=== PATIENT | female | born 1970 | race Caucasian/White ===

== ENCOUNTER 2018-01-01 23:49 | Emergency (ER) | payer MEDICARE, OTHER ==
[~2018-01-01] VITALS: Ht 162.6 cm; Wt 61.7 kg
[2018-01-02 00:12] VITALS: BP 148/82
[2018-01-02] MEDS ORDERED: TRAMADOL HCL 50 MG TAB PO ONE (00:15)
== END 2018-01-02 00:36 | disposition home or self-care (01) ==
LOC: FSED 23:49
DX: J02.0 Streptococcal pharyngitis (principal)
CPT/HCPCS: 83518; 99282

== ENCOUNTER → 2018-08-25 | Outpatient (CLI) | payer MEDICARE, OTHER ==
--- NOTE | 2018-08-25 13:10 | Diagnostic Imaging Report ---
EXAM: CT Chest WITHOUT contrast 08/25/2018 9:48 AM INDICATION: Chronic cough COMPARISON: No prior CT or CT report is available on PACS for comparison. TECHNIQUE: Chest was scanned utilizing a multidetector helical scanner from the lung apex through the level of the adrenal glands without administration of IV contrast. Absence of intravenous contrast decreases sensitivity for detection of lymphadenopathy and vascular pathology. Coronal and sagittal reformations were obtained. Routine protocol was performed. Dose modulation, iterative reconstruction, and/or weight based adjustment of the mA/kV was utilized to reduce the radiation dose to as low as reasonably achievable. IV CONTRAST: None RADIATION DOSE: Total DLP: 548.32 mGy*cm Estimated effective dose: (DLP x 0.014 x size factor) mSv COMPLICATIONS: None FINDINGS: LINES/ TUBES: None. LUNGS AND AIRWAYS: In the posterior apex of the right lower lobe (series 6, image 58) there is a 7 mm cavitated nodule. In the left lower lobe there is a nonspecific 3 mm nodule (image 89). A small calcified granuloma is seen in the left upper lobe. No pulmonary consolidation. Trachea and main bronchi are clear. PLEURA: No pleural effusion, pneumothorax or pleural calcification. HEART AND MEDIASTINUM: The thyroid gland is normal. No mediastinal, hilar or axillary lymphadenopathy. The heart is normal in size.. There is no pericardial effusion. The thoracic aorta is unremarkable. No dilatation of the main pulmonary artery. Small hiatus hernia is seen. UPPER ABDOMEN: Included portions of the unenhanced liver, spleen, pancreas and adrenals unremarkable. In the upper pole of the right kidney there are several parenchymal calcifications which appear to be related to cortical scars. There is fat stranding seen adjacent to the lateral mid and lower portion of the right kidney. BONES: No acute or suspicious bony lesion. A sclerotic focus in the manubrium sternum may be a bone island. SOFT TISSUES: Superficial surrounding soft tissue unremarkable. IMPRESSION: 1. Small cavitated nodule in the right lower lobe may be inflammatory or infectious, possibly related to aspiration. However, differential considerations include opportunistic infection or neoplasm. Recommend correlation with laboratory findings and medical history. Short interval chest CT may be appropriate after treatment to assess for resolution. 2. Nonspecific 3 mm left lower lobe nodule. Six-month follow-up CT recommended to assess stability. 3. Localized fat stranding adjacent to the mid and lower portions of the right kidney may be related to renal infection. This is only partially visualized on current chest CT. Correlation with CT abdomen/pelvis recommended. Signed by: Dr. Fabio Acosta M.D. on 08/25/2018 1:06 PM
--- NOTE | 2018-08-25 17:05 | Diagnostic Imaging Report ---
Maxillofacial sinus CT without IV contrast. History: Cough. Comparison studies: None Technique: Axial images were obtained through the paranasal sinuses. Coronal and sagittal images reconstructed from the axial data. Radiation dose: Total DLP: 348 mGy*cm. Estimated effective dose: DLP x 0.015 Intravenous contrast: None Findings: Paranasal sinuses: Bilateral anterior and posterior ethmoid air cells are partially opacified and contain scattered nonspecific inflammatory mucosal thickening. There is mild focal mucosal thickening or retention cyst in the anterior right sphenoid sinus and in the left frontal sinus. Minimal mucosal thickening in the bilateral maxillary sinuses and left sphenoid sinus. Mucosal thickening along bilateral Gabriele cells result in narrowing of the bilateral maxillary ostia. The hiatus semilunaris and ethmoid infundibula are otherwise patent bilaterally. The sphenoethmoidal recesses and frontoethmoidal recesses are patent. Other: Nasal vestibule and cavity: There is nonspecific reactive hypertrophy of the inferior turbinates. No mass. Nasal septum: S-shaped septal deviation with dominant curvature to the left with associated leftward projecting osseous spur which abuts the left middle and inferior turbinates. Mild deviation of the anterior superior nasal septum to the right. Agger Nasi: Partially opacified with mucosal thickening. Turbinates: No hunter bullosa. Gabriele cells: Present bilaterally, as above. Lamina papyracea: Intact. Cribriform plates: Proximally 7 mm below the level the fovea ethmoidalis on the right. Shallow transition from the lateral lamella to the left cribriform plate and fovea ethmoidalis. Olfactory recesses: Clear Optic canals: Not dehiscent Onodi cells: None Carotid canals: Not dehiscent. from the sphenoid sinuses by thin bony plates. Sphenoid sinuses: The right lateral recess is partially pneumatized. The left lateral recess is not aerated. The sphenoid septum bows to the right of midline and inserts posteriorly to the left of midline along the anterior wall the left petrous carotid canal. Orbits: No abnormalities. Bones: No abnormalities. Temporal bones: No gross abnormalities. Maxillary dentition: No periapical lucencies. IMPRESSION: 1. Scattered nonspecific inflammatory mucosal thickening in the paranasal sinuses as described with partially opacified bilateral anterior and posterior ethmoid air cells. 2. Maxillary ostia narrowed bilateral by mucosal thickening along anatomical variant Gabriele cells. Remaining sinus drainage pathways are patent. 3. Nonspecific reactive nasal turbinate hypertrophy. 4. S-shaped nasal septal deviation with dominant curvature convex to the left with associated osseous spur. Signed by: Dr. Elia Serra M.D. on 08/25/2018 5:02 PM
== END ==
LOC: MAMMO 09:19
PROVIDERS: ATTEND Internal Medicine
DX: Z12.31 Encounter for screening mammogram for malignant neoplasm of breast (principal); R05 Cough; R91.8 Other nonspecific abnormal finding of lung field; J34.3 Hypertrophy of nasal turbinates
CPT/HCPCS: 70486; 71250; 77067

== ENCOUNTER → 2019-02-14 | Outpatient (CLI) | payer MEDICARE ==
--- NOTE | 2019-02-14 14:10 | Diagnostic Imaging Report ---
EXAM: CT Abdomen and Pelvis WITHOUT intravenous contrast INDICATION: Hematuria, left flank pain COMPARISON: Chest CT of 08/25/2018 TECHNIQUE: Abdomen and pelvis were scanned utilizing a multidetector helical scanner from the lung base to the pubic symphysis without administration of IV contrast. Coronal and sagittal reformations were obtained. IV CONTRAST: None ORAL CONTRAST: Water COMPLICATIONS: None RADIATION DOSE: Total DLP: 548.2 mGy*cm Dose modulation, iterative reconstruction, and/or weight based adjustment of the mA/kV was utilized to reduce the radiation dose to as low as reasonably achievable. FINDINGS: LOWER THORAX: 4 mm left lower lobe pulmonary nodule (series 3 image 4) appears unchanged compared to the chest CT of 08/25/2018. A separate 4 mm nodule further inferiorly (series 3 image 10) appears less prominent compared to the prior chest CT. No new pulmonary nodules at the lung bases. HEPATOBILIARY: No focal liver lesions. Unremarkable gallbladder. SPLEEN: No splenomegaly. PANCREAS: No focal masses or ductal dilatation. ADRENALS: No adrenal nodules. KIDNEYS/URETERS: Right upper pole renal calculi measure up to 3 mm. Right midpole and lower pole renal calculi also measure up to 3 mm. No hydronephrosis. There is a predominantly fat attenuation 3.9 x 2.4 cm right retroperitoneal mass which appears to have soft tissue component in association with the right kidney. PELVIC ORGANS/BLADDER: Unremarkable. PERITONEUM / RETROPERITONEUM: No free air or fluid. LYMPH NODES: No lymphadenopathy. VESSELS: Unremarkable. GI TRACT: Sigmoid diverticulosis without CT evidence of diverticulitis. No abnormal bowel wall thickening. No bowel obstruction. Normal appendix. BONES AND SOFT TISSUES: No acute osseous injury. No suspicious lytic or blastic lesions. IMPRESSION: Scattered nonobstructive right renal calculi measure up to 3 mm. Predominantly fat attenuation 3.9 x 2.4 cm right retroperitoneal mass appears to have soft tissue component connected to the lateral right kidney. This could represent a renal angiomyolipoma. A primary retroperitoneal mass such as liposarcoma as low to be less likely. Left lower lobe pulmonary nodules measure up to 4 mm and appear unchanged to slightly decreased from the dedicated chest CT of 08/25/2018. If the patient is low risk, no further follow-up is necessary. If the patient is high risk, continuation of follow-up at 1 year can be considered as originally recommended. Signed by: Doug Kaminski MD on 02/14/2019 2:07 PM
== END ==
LOC: CT 12:29
PROVIDERS: ATTEND Internal Medicine
DX: R31.9 Hematuria, unspecified (principal); R10.9 Unspecified abdominal pain
CPT/HCPCS: 74176

== ENCOUNTER → 2019-03-11 | Outpatient (CLI) | payer MEDICARE ==
--- NOTE | 2019-03-11 11:49 | Diagnostic Imaging Report ---
EXAM: CT Chest WITHOUT intravenous contrast 03/11/2019 9:36 AM INDICATION: Cough, pulmonary nodules COMPARISON: Abdomen and pelvis CT of 02/14/2019, chest CT of 08/25/2018 TECHNIQUE: Chest was scanned utilizing a multidetector helical scanner from the lung apex through the level of the adrenal glands without administration of IV contrast. Coronal and sagittal reformations were obtained. Routine protocol was performed. IV CONTRAST: None RADIATION DOSE: Total DLP: 178.3 mGy*cm. Dose modulation, iterative reconstruction, and/or weight based adjustment of the mA/kV was utilized to reduce the radiation dose to as low as reasonably achievable. COMPLICATIONS: None FINDINGS: LINES/ TUBES: None. LUNGS AND AIRWAYS: The central airways are patent. No focal consolidation or pulmonary edema. 3 and 4 mm left lower lobe pulmonary nodules appear unchanged dating back to at least 08/25/2018. No new suspicious pulmonary nodules. PLEURA: The pleural spaces are clear. HEART AND MEDIASTINUM: The thyroid gland is normal. No mediastinal, hilar or axillary lymphadenopathy. The heart is not enlarged. No pericardial effusion.. UPPER ABDOMEN: Limited noncontrast images of the upper abdomen demonstrate no focal abnormality of the partially visualized liver, spleen, pancreas, adrenals, or left upper kidney. 4 mm right upper pole renal calculi. BONES: No acute osseous injury. No suspicious lytic or blastic lesions. SOFT TISSUES: Unremarkable. IMPRESSION: Stable left lower lobe 3 and 4 mm pulmonary nodules. No new suspicious pulmonary nodules. Given interval stability, these small nodules do not require further imaging follow-up. Signed by: Doug Kaminski MD on 03/11/2019 11:46 AM
== END ==
LOC: CT 09:29
PROVIDERS: ATTEND Internal Medicine
DX: R91.8 Other nonspecific abnormal finding of lung field (principal)
CPT/HCPCS: 71250

== ENCOUNTER → 2020-02-01 | Outpatient (CLI) | payer MEDICARE ==
[~2020-02-01] MED LIST: IOPAMIDOL 370 MG/ML 200 ML INFUS..BTL INJ ONE; SODIUM CHLORIDE 0.9% 50ML 50 ML ONE
--- NOTE | 2020-02-01 16:17 | Diagnostic Imaging Report ---
EXAM: CT Chest WITHOUT intravenous contrast 02/01/2020 2:08 PM INDICATION: Pulmonary nodules COMPARISON: Chest CT 03/11/2019 and 08/25/2018 TECHNIQUE: Chest was scanned utilizing a multidetector helical scanner from the lung apex through the level of the adrenal glands without administration of IV contrast. Coronal and sagittal reformations were obtained. Routine protocol was performed. IV CONTRAST: None RADIATION DOSE: Total DLP: 148 mGy*cm. Dose modulation, iterative reconstruction, and/or weight based adjustment of the mA/kV was utilized to reduce the radiation dose to as low as reasonably achievable. COMPLICATIONS: None FINDINGS: LINES/ TUBES: None. LUNGS AND AIRWAYS: The central airways are patent. No focal consolidation or pulmonary edema. Previously described left lower lobe pulmonary nodules appear unchanged dating back to at least 08/25/2018. No new suspicious pulmonary nodules. PLEURA: The pleural spaces are clear. HEART AND MEDIASTINUM: The thyroid gland is normal. No mediastinal, hilar or axillary lymphadenopathy. The heart is not enlarged. No pericardial effusion.. UPPER ABDOMEN: Please see the separate dictation for the concurrently performed abdomen and pelvis CT for a detailed discussion of intra-abdominal findings. BONES: No acute osseous injury. No suspicious lytic or blastic lesions. SOFT TISSUES: Unremarkable. IMPRESSION: Left lower lobe pulmonary nodules are stable dating back to at least 08/25/2018. No new suspicious pulmonary nodules. No further follow-up imaging is necessary for these pulmonary nodules. Signed by: Doug Kaminski MD on 02/01/2020 4:14 PM
--- NOTE | 2020-02-01 16:27 | Diagnostic Imaging Report ---
EXAM: CT Abdomen and Pelvis WITHOUT and WITH intravenous contrast - Renal mass protocol INDICATION: Renal mass COMPARISON: CT abdomen and pelvis of 02/14/2019 TECHNIQUE: Abdomen and pelvis were scanned utilizing a multidetector helical scanner from the lung base to the pubic symphysis before and after administration of IV contrast. Coronal and sagittal reformations were obtained. Renal mass protocol was used. Scan was performed prior to contrast administration and during arterial, portal venous, and delayed phase. IV CONTRAST: 100 mL of Isovue 370 ORAL CONTRAST: Water COMPLICATIONS: None RADIATION DOSE: Total DLP: 718 mGy*cm Dose modulation, iterative reconstruction, and/or weight based adjustment of the mA/kV was utilized to reduce the radiation dose to as low as reasonably achievable. FINDINGS: LOWER THORAX: Please refer to report from concurrently performed chest CT for intrathoracic findings HEPATOBILIARY: Mild diffuse hepatic steatosis. No biliary ductal dilation. No focal liver lesion. Unremarkable gallbladder. SPLEEN: No splenomegaly. PANCREAS: No focal masses or ductal dilatation. ADRENALS: No adrenal nodules. 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 Scattered right upper and lower pole nonobstructive renal calculi measure up to 4 mm. No hydronephrosis or hydroureter. PELVIC ORGANS/BLADDER: Unremarkable. PERITONEUM / RETROPERITONEUM: No free air or fluid. LYMPH NODES: No lymphadenopathy. VESSELS: Unremarkable. GI TRACT: No abnormal bowel thickening. No bowel obstruction. Normal appendix. Small hiatal hernia. BONES AND SOFT TISSUES: No acute osseous injury. No suspicious lytic or blastic lesions. IMPRESSION: No significant interval change in right renal angiomyolipoma. If the patient is asymptomatic, consider follow-up renal ultrasound in 12 months. If symptomatic, angiography and embolization is a therapeutic option. Mild diffuse hepatic steatosis. Small hiatal hernia. Signed by: Doug Kaminski MD on 02/01/2020 4:24 PM
== END ==
LOC: CT 13:05
PROVIDERS: ATTEND Internal Medicine
DX: R91.8 Other nonspecific abnormal finding of lung field (principal); N28.89 Other specified disorders of kidney and ureter; K76.0 Fatty (change of) liver, not elsewhere classified; K44.9 Diaphragmatic hernia without obstruction or gangrene
CPT/HCPCS: 71250; 74178; Q9967

== ENCOUNTER → 2021-02-21 | Outpatient (CLI) | payer MEDICARE | LOC: MAMMO 11:34 | PROVIDERS: ATTEND Internal Medicine | DX: Z12.31 Encounter for screening mammogram for malignant neoplasm of breast (principal) | CPT/HCPCS: 77067 ==

== ENCOUNTER → 2022-03-10 | Outpatient (CLI) | payer MEDICARE | LOC: MAMMO 12:08 | PROVIDERS: ATTEND Internal Medicine | DX: Z12.31 Encounter for screening mammogram for malignant neoplasm of breast (principal) | CPT/HCPCS: 77067 ==